=== PATIENT | male | born 2000 | race Caucasian/White ===

== ENCOUNTER 2022-01-03 15:08 | Outpatient (CLI) | payer OTHER ==
[2022-01-03 16:08] LABS: Hemoglobin 15.3 g/dL (13.5-17.5); Mean Corpuscular HGB CONC 34.2 g/dL (32.0-36.0); Mean Corpuscular Hemoglobin 29.4 pg (27.0-33.0); Mean Platelet Volume 9.9 fl (7.4-10.4); Platelet Count 271 10x3/uL (150-450); White Blood Cell (WBC) Count 5.5 10x3/uL (3.5-10.5)
== END 2022-01-03 15:09 | disposition home or self-care (01) ==
LOC: LABBT 15:08
PROVIDERS: ATTEND Orthopaedic Surgery Hand Surgery
DX: Z01.812 Encounter for preprocedural laboratory examination (principal); Z20.822 Contact with and (suspected) exposure to COVID-19
CPT/HCPCS: 85027; 87811

== ENCOUNTER 2022-01-07 13:04 | Day surgery (SDC) | payer OTHER ==
[2022-01-06 11:38] VITALS: BMI 22.2
[2022-01-07] MEDS ORDERED: Famotidine/PF 20 mg/2ml Vial ONE (14:42)
[2022-01-07] MEDS ORDERED: Neomycin-Polymyxin 1 ML AMP ONE (14:50)
[2022-01-07] MEDS ORDERED: Betamet Acet/Betamet Na Ph 30 MG/5 ML VIAL ONE (14:50)
[2022-01-07] MEDS ORDERED: Bupivacaine PF 0.5% 30 ML VIAL ONE (14:50)
[2022-01-07] MEDS ORDERED: Bacitracin Zinc Ointment 30 gm TUBE ONE (14:51)
[2022-01-07] MEDS ORDERED: fentaNYL Citrate/PF 100 MCG/2 ML SYRINGE ONE (15:11)
[2022-01-07] MEDS ORDERED: CEFAZOLIN 2 GM VIAL ONE (15:15)
[2022-01-07] MEDS ORDERED: Sodium Chloride 0.9% 100 ML ONE (15:15)
[2022-01-07] MEDS ORDERED: ePHEDrine 50 MG/ML VIAL ONE (15:23)
[2022-01-07] MEDS ORDERED: Ondansetron PF 4 MG/2 ML Vial ONE (15:23)
[2022-01-07] MEDS ORDERED: PROPOFOL 200 MG/20 ML VIAL ONE (15:23)
[2022-01-07] MEDS ORDERED: Lidocaine 1% PF 5 ML VIAL ONE (15:23)
[2022-01-07] MEDS ORDERED: Dexamethasone 20 MG/5 ML VIAL ONE (15:23)
[2022-01-07] MEDS ORDERED: Meperidine HCl/PF 25 MG/ML VIAL ONE (17:46)
[2022-01-07] MEDS ORDERED: Ketorolac Tromethamine 30 MG/ML VIAL ONE (19:35)
== END 2022-01-07 20:00 | disposition home or self-care (01) ==
LOC: SDC 13:04
PROVIDERS: ATTEND Orthopaedic Surgery Hand Surgery
PROC: 0PUP0KZ Supplement Right Metacarpal with Nonautologous Tissue Substitute, Open Approach (ICD-10-PCS; principal; 2022-01-07)
PROC: 0PSP04Z Reposition Right Metacarpal with Internal Fixation Device, Open Approach (ICD-10-PCS; principal; 2022-01-07)
DX: S62.316A Displaced fracture of base of fifth metacarpal bone, right hand, initial encounter for closed fracture (principal); Z79.899 Other long term (current) drug therapy; W22.09XA Striking against other stationary object, initial encounter; Y93.22 Activity, ice hockey
CPT/HCPCS: 76000; C1713; J0690; J0702; J1100; J1885; J2175; J2405; J2704; J3490; S0020; S0028